=== PATIENT | female | born 1935 | race Caucasian/White ===

== ENCOUNTER 2017-06-28 23:30 | Inpatient (IN) | payer MEDICARE ==
[2017-06-29] MEDS ORDERED: Fentanyl 100 MCG/2 ML VIAL ONE ×2 (00:31→06:39)
[2017-06-29 00:43] LABS: Base Excess-Venous -19.7 mmol/L (-30.0-30.0); Bicarbonate (HCO3v) 8.6 mmol/L (1.0-85.0); CO2 Tension (PvCO2) 27.7 mmHg (41.0-51.0); Calcium, Ionized 1.01 mmol/L (1.12-1.32); Hemoglobin - Calc 15.2 g/dL (12.0-18.0); O2 Tension (PvO2) 43.9 mmHg (35.0-45.0); Potassium 4.1 mmol/L (3.4-4.7); T. Carbon Dioxide 9.4 mmol/L (1.0-85.0); pH (Venous) 7.099 (7.35-7.45); vO2 Saturation-calc 63.7 % (0.0-100.0)
[2017-06-29 01:02] LABS: Hemoglobin 12.7 g/dL (12.0-16.0); Mean Corpuscular HGB CONC 30.1 g/dL (32.0-36.0); Mean Corpuscular Hemoglobin 27.7 pg (27.0-31.0); Mean Corpuscular Volume 92.3 fl (81.0-99.0); Mean Platelet Volume 10.5 fL (7.4-10.4); Platelet Count 210 thou/uL (130-400); RBC Distribution Width 14.7 % (11.5-14.5); Red Blood Cell (RBC) Count 4.56 mill/uL (4.20-5.40)
[2017-06-29 01:15] LABS: Troponin I 0.037 ng/mL (< 0.028)
[2017-06-29 01:16] LABS: Band 19 % (5-11); Lymphocytes 6 % (21-51); MDiff Complete? YES; Metamyelocyte 4 % (0-0); Monocytes 21 % (0-10); Myelocyte 2 % (0-0); Neutrophil 48 % (42-75); PLT Morphology Comment Appears Adequate; Polychromasia SLIGHT = 2-3 cells (100X) (0-2/hpf); Reflex for Review?? YES
[2017-06-29 01:28] LABS: CKMB 102.3 ng/mL (0-6.6)
[2017-06-29 01:43] LABS: pH, Arterial 6.99 (7.35-7.45)
[2017-06-29 01:44] LABS: Actual Bicarbonate (HCO3a) 4.5 mEq/L (22-26); Base Excess (BEa) -25.2 mEq/L (0 (+/-) 2.5); CO2 Tension 18.9 mmHg (35.0-45.0); Hematocrit-ABG 35.2 % (36.0-47.0); Hemoglobin (Hb) 9.7 g/dL (12.0-16.0)
[2017-06-29 01:45] LABS: ALV-art Gradient 296.375 (0-20); Analyzer IN Cardio ER; Calcium, Ionized 1.1 mmol/L (1.12-1.30); Puncture Site LRA
[2017-06-29] MEDS ORDERED: Calcium Gluc 4.6 MEQ/10 ML (100 MG/ML) ONE (01:49)
[2017-06-29] MEDS ORDERED: Propofol 1,000 MG/100 ML VIAL IV ONE (01:51)
[2017-06-29 01:55] LABS: ALT (SGPT) 36 U/L (8-55); AST (SGOT) 111 U/L (5-34); Albumin 3.6 g/dL (3.4-4.8); Alkaline Phosphatase 104 U/L (40-150); BUN (Urea Nitrogen) 21 mg/dL (9.8-20.1); Bilirubin, Total 1.9 mg/dL (0.2-1.2); Calc. Creatinine Clearance 0 mL/min (70-130); Calcium 9.3 mg/dL (7.8-10.44); Chloride 97 mmol/L (98-107); Estimated GFR-MDRD 28; Glucose 338 mg/dL (83-110); Lipase Less than 4 U/L (8-78); Potassium 4.4 mmol/L (3.5-5.1); Protein, Total 6.6 g/dL (6.0-8.3); Sodium 134 mmol/L (136-145)
[2017-06-29 02:01] LABS: Carbon Dioxide Less than 8 mmol/L (23-31)
[2017-06-29] MEDS ORDERED: Sodium Bicarbonate 150 MEQ in Dextrose 5% in Water 1,000 ML IV SCH (02:15)
[2017-06-29] MEDS ORDERED: Acetaminophen 650 MG Suppository PR PRN (02:44)
[2017-06-29] MEDS ORDERED: Phenylephrine 10 MG/NS 250 ML 250 ML IVPB PRN (02:44)
[2017-06-29] MEDS ORDERED: CCU Electrolyte Replacement 1 EACH IVPB ONE (02:44)
[2017-06-29] MEDS ORDERED: Sodium Chloride 0.9% 1,000 ML IV SCH (02:45)
[2017-06-29] MEDS ORDERED: Potassium Chloride 20 MEQ TAB PO PRN (03:08)
[2017-06-29] MEDS ORDERED: Magnesium Oxide 400 MG TAB PO PRN ×2 (03:08)
[2017-06-29] MEDS ORDERED: Potassium Chloride 40 MEQ in Sodium Chloride 0.9% 250 ML 250 ML IVPB PRN (03:08)
[2017-06-29] MEDS ORDERED: Potassium Phosphate 15 MMOL in Sodium Chloride 0.9% 250 ML 250 ML IV PRN (03:08)
[2017-06-29] MEDS ORDERED: Potassium Phosphate 9 MMOL in Sodium Chloride 0.9% 100 ML IVPB PRN (03:08)
[2017-06-29] MEDS ORDERED: Potassium Phosphate 12 MMOL in Sodium Chloride 0.9% 250 ML 250 ML IV PRN (03:08)
[2017-06-29] MEDS ORDERED: Potassium Chloride 40 MEQ in Premix Bag 1 BAG IVPB PRN (03:08)
[2017-06-29] MEDS ORDERED: CCU ELECTROLYTE REPLACEMENT PROTOCOL FS PRN (03:08)
[2017-06-29] MEDS ORDERED: Magnesium 2 GM/NS 0.9% 100 ML 2 GM in Premix Bag 1 BAG IVPB PRN (03:08)
[2017-06-29 03:15] LABS: Magnesium 3.1 mg/dL (1.6-2.6); Uric Acid 9.5 mg/dL (2.6-6.0)
[2017-06-29 03:15] LABS: pH, Arterial 7.09 (7.35-7.45)
[2017-06-29 03:16] LABS: Actual Bicarbonate (HCO3a) 6.7 mEq/L (22-26); Base Excess (BEa) -21.1 mEq/L (0 (+/-) 2.5); CO2 Tension 22.3 mmHg (35.0-45.0)
[2017-06-29 03:17] LABS: Calcium, Ionized 1.1 mmol/L (1.12-1.30); Hematocrit-ABG 20.7 % (36.0-47.0); Hemoglobin (Hb) 6.5 g/dL (12.0-16.0)
[2017-06-29 03:18] LABS: ALV-art Gradient 131.125 (0-20); Analyzer IN Cardio ER; Puncture Site RRA
[2017-06-29 03:20] LABS: Phosphorus 14.2 mg/dL (2.3-4.7)
[2017-06-29] MEDS ORDERED: Pantoprazole 80 MG in Sodium Chloride 0.9% 100 ML IVP SCH (04:00)
[2017-06-29] MEDS ORDERED: Clindamycin/D5W 900 MG in Premix Bag 1 BAG IVPB SCH ×2 (04:15→12:00)
[2017-06-29] MEDS ORDERED: Piperacillin-Tazo-Dextrose,Iso 3.375 GM in Premix Bag 1 BAG IVPB SCH (04:30)
[2017-06-29 04:44] LABS: Bilirubin Small (Negative); Blood, Urine Moderate (Negative); Glucose, Urine (Dipstick) Negative (Negative); Leukocyte Large (Negative); Nitrite Negative (Negative); Protein, Urine (Dipstick) 30 mg/dL (Neg-Trace); Specific Gravity, Urine 1.021 (1.002-1.036); Urobilinogen 0.2 mg/dL (0.2-1.0); pH, Urine 5.5 (5.0-9.0)
[2017-06-29 04:46] LABS: Bacteria/HPF 4+ HPF (None Seen); RBC/HPF 0-3 HPF (0-3); Squamous Epithelial 0-3 HPF (0-3); Yeast-AUWi Flag 17.5 (0-25.0)
[2017-06-29 05:08] LABS: Clarity Cloudy (Clear)
[2017-06-29 05:09] LABS: Hyaline Casts/LPF 0-3 HYALINE CAST LPF (0-3 Hyaline)
[2017-06-29] MEDS ORDERED: Piperacillin/Tazobactam 3.375 GM in Sodium Chloride 0.9% 100 ML IVPB SCH ×2 (06:00→12:00)
[2017-06-29 06:34] LABS: Chloride 95 mmol/L (98-107); Potassium 4.6 mmol/L (3.5-5.1); Sodium 135 mmol/L (136-145)
[2017-06-29] MEDS ORDERED: Bupivacaine/Epinephrine 0.25% 30 ML VIAL ONE (06:35)
[2017-06-29 06:36] LABS: Anion Gap 25 mmol/L (10-20); Carbon Dioxide 20 mmol/L (23-31)
[2017-06-29 06:38] LABS: Calc. Creatinine Clearance 0 mL/min (70-130); Estimated GFR-MDRD 35
[2017-06-29 06:39] LABS: BUN (Urea Nitrogen) 17 mg/dL (9.8-20.1)
[2017-06-29] MEDS ORDERED: Ketamine 50 MG/ML VIAL ONE (06:39)
[2017-06-29 06:45] LABS: Calcium 4.9 mg/dL (7.8-10.44); Glucose 825 mg/dL (83-110)
[2017-06-29] MEDS ORDERED: Sodium Bicarb 50 MEQ/50 ML Abboject 8.4% SYRINGE ONE ×4 (06:56→17:40)
[2017-06-29 06:58] LABS: Hemoglobin 6.2 g/dL (12.0-16.0); Mean Corpuscular HGB CONC 31.2 g/dL (32.0-36.0); Mean Corpuscular Volume 96.1 fl (81.0-99.0); Mean Platelet Volume 8.5 fL (7.4-10.4); Platelet Count 10 thou/uL (130-400); RBC Distribution Width 13.8 % (11.5-14.5); Red Blood Cell (RBC) Count 2.07 mill/uL (4.20-5.40); White Blood Cell (WBC) Count 22.9 thou/uL (4.8-10.8)
[2017-06-29 07:00] LABS: Band 31 % (5-11); Lymphocytes 14 % (21-51); MDiff Complete? YES; Monocytes 5 % (0-10); Neutrophil 50 % (42-75); PLT Morphology Comment Appears Decreased
[2017-06-29] MEDS ORDERED: DOPamine 400 MG/D5W 250 ML 250 ML ONE (07:02)
--- NOTE | 2017-06-29 07:11 | HP ---
PRIMARY CARE PHYSICIAN: Richard Martinez M.D. CHIEF COMPLAINT: Left hip pain. HISTORY OF PRESENT ILLNESS: Ms. Sy is an 82-year-old lady who was seen at [facility] on 06/29/2017. She initially presented to the emergency room complaining of left hip pain. She is currently intubated and mechanically ventilated, unable to provide any history. History was obtained from her , emergency room physician and medical records reviewed. She has been complaining of left hip pain over the last 2 weeks. She came to the emergency room because she fell yesterday after she slipped to the ground. The pain worsened. In the emergency room, she was found to be tachypneic, tachycardic with perioral cyanosis. She became less responsive. She received bicarbonate drip. She was eventually intubated for airway protection. She also had a central line placed. She also had an OG tube placed, which is draining blood. She was then referred to hospitalist service for admission. REVIEW SYSTEMS: Could not be completed secondary to patient's intubated status. PAST MEDICAL HISTORY: Significant for left breast cancer, status post mastectomy, status post chemotherapy for four years prior to 2005, dyslipidemia , seizure disorder on Keppra. PAST SURGICAL HISTORY: Significant for left mastectomy. PSYCHIATRIC HISTORY: None. SOCIAL HISTORY: No history of tobacco use, alcohol use or recreational drug use. FAMILY HISTORY: Could not be obtained. CODE STATUS: patient's code status was discussed by the emergency room physician with patient's . Patient is FULL CODE. ALLERGIES: CODEINE and MERCURY. CURRENT MEDICATIONS: Unknown. PHYSICAL EXAMINATION: GENERAL: On examination, Ms. Sy is intubated and mechanically ventilated. VITAL SIGNS: Blood pressure is 99/53, pulse is 106. She is breathing at rate of 16 and saturating 94% on the ventilator. She is afebrile. EYES: Pupils are approximately 4 mm bilaterally, very sluggishly reactive to light. No scleral icterus. ENT: Endotracheal tube present. NECK: Trachea is midline. No thyromegaly. RESPIRATORY: Chest wall movements are symmetric bilaterally. LUNGS: Clear to auscultation bilaterally. CARDIOVASCULAR: S1 and S2 are heard, regular and tachycardic. Peripheral pulses palpable. ABDOMEN: soft, non tender, no guarding or rigidity, sluggish bowel sounds. NEUROLOGIC: Unable to complete neurologic examination secondary to patient's intubated status. There is no facial droop. Deep tendon reflexes 2+. Plantar reflexes are equivocal bilaterally. MUSCULOSKELETAL: No spontaneous extremity movements at this time. SKIN: She has crepitus extending from left midthigh to left axilla, also present on the left abdominal wall as well as left chest wall. She also has bruising over the left lower quadrant as well as back. PSYCHIATRIC: Unable to assess mood, affect or orientation to person, place, or time. IMAGING AND LABORATORY DATA: Ms. Sy's labs and investigations were reviewed. I reviewed her electrocardiogram, which shows sinus tachycardia, no ST changes to suggest an acute coronary syndrome. I also reviewed her chest x- ray, which does not show any pulmonary infiltrates. She does have subcutaneous emphysema on the left side. She also had CT scan of the chest, abdomen, and pelvis. The official report is pending, but she appears to have subcutaneous airs extending from left thigh to left axilla. Laboratory investigations show leukocytosis with 111,000 white cells, normal hemoglobin, normal platelet count , elevated band neutrophils of 19%, neutrophils 48%, elevated monocytes of 21%, elevated metamyelocytes 4%, and elevated myelocytes 2%. She also has hyponatremia with sodium 134, normal potassium, carbon dioxide less than 8, blood urea nitrogen 21, elevated creatinine 1.74, elevated total bilirubin of 1.9, elevated AST of 111, normal ALT, indeterminate troponin I of 0.037, lactic acid elevated at 16.9, elevated TSH of 5.6842, urinalysis positive for protein, blood, bilirubin, and leukocyte esterase. Arterial blood gases show pH of 7.09 , pCO2 22.3, and pO2 549. ASSESSMENT AND PLAN: Ms. Sy is an 82-year-old lady who was seen at [facility] on 06/29/2017. Her problem list includes; 1. Sepsis: She appears to be presenting in sepsis. Etiology is unclear. Given the subcutaneous emphysema, general surgery service has been consulted by emergency room physician. She will be treated with vancomycin, Zosyn, levofloxacin, and clindamycin for now. We will await blood cultures. 2. Acute respiratory failure: She will be admitted to the CCU for mechanical ventilation. Pulmonology Service will be consulted. 3. Hematologic abnormalities: Suspicious for hematologic malignancy. Hematology Service has been contacted by emergency room physician and will see the patient today. 4. Renal insufficiency: Patient is receiving intravenous fluids. We will recheck creatinine. 5. Elevated TSH: TSH elevation is mild. We will check free T3 and free T4. 6. Seizure disorder: Continue Keppra after doses clarified. 7. Metabolic acidosis: likely secondary to lactic acidosis from sepsis. Treat sepsis with antibiotics, fluids, recheck labs. 8. GI bleed: start PPI drip, await surgical input. Many thanks for allowing me to participate in your patient's care. Please feel free to contact me with any questions or concerns. I had a lengthy discussion with patient's . He is aware that prognosis is guarded. LEVEL OF RISK: High. LEVEL OF COMPLEXITY: High. MTDD
[2017-06-29] MEDS ORDERED: Albumin 5% 0 ML ONE (07:13)
[2017-06-29] MEDS ORDERED: Vasopressin 40 UNIT, Admixture Fee 1 EACH in Sodium Chloride 0.9% 100 ML IV SCH (07:15)
[2017-06-29] MEDS ORDERED: Atropine Sulfate 1 mg/10 ml Syringe ONE ×2 (07:22→15:43)
[2017-06-29] MEDS ORDERED: Atropine Sulfate 0.4 mg/1 ml Vial ONE ×2 (07:23→09:09)
--- NOTE | 2017-06-29 07:32 | CON ---
DATE OF CONSULTATION: 06/29/2017. CONSULTING PHYSICIAN: Dr. Rodriguez, ER physician. HISTORY OF PRESENT ILLNESS: Marce Sy is an 82-year-old female who presented to [facility] with a chief complaint of fall and left-sided hip pain. During her workup, the patient became incr easingly altered and hypotensive. She was intubated by the ER physician. Prior to her intubation, t he patient had also started complaining of abdominal pain for which a CT scan was ordered. The CT sc an demonstrated diffuse left-sided subcutaneous emphysema for which we were consulted. Upon our eval uation, the patient is intubated and sedated on pressors with family at bedside. Per patient's famil y, she developed an upper respiratory infection approximately one month ago for which she received Au gmentin, which seemed to improve her symptoms. Approximately one week prior today, she developed sym ptoms of an upper respiratory infection and 3 days ago developed left hip pain which has gradually be en worsening. Patient attempted to ambulate earlier today, but fell and was too weak to ambulate the reafter and that is when the family brought her to the emergency room. Of note, she had a fever of 1 02 earlier today as well. states that there is a large area of discoloration along her left side which was not there earlier today. ALLERGIES: CODEINE and MERCURY. HOME MEDICATIONS: None. 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 Last chemo was in 2009, seizures and osteoporosis. PAST SURGICAL HISTORY: Left breast mastectomy in 2005. SOCIAL HISTORY: The patient lives with at home. Family denies alcohol, tobacco or illicit d rug use. REVIEW OF SYSTEMS: Negative except as indicated in the HPI. PHYSICAL EXAMINATION: VITAL SIGNS: On evaluation, blood pressure 99/53, pulse 106, respirations 16, O2 sat 96% on ventilat or, temperature 93.9. Ventilator settings, SIMV rate of 30, tidal volume 350, PEEP 5, FiO2 100%, Lev ophed at 25 mcg per minute. GENERAL: Elderly appearing female, sedated and intubated. PULMONARY: Symmetric rise. CARDIOVASCULAR: Tachycardic, no obvious murmurs, rubs, or gallops. Gastrointestinal: Abdomen is soft and nondistended. MUSCULOSKELETAL: No gross bony abnormality. NEUROLOGIC: Sedated. SKIN: There is a large purpuric discoloration extending from the proximal medial thigh and posterior ly caudally into the axilla. The borders of which were outlined by Dr. Wheatley at the time of our exam ination. LABORATORY DATA: WBC 111, hemoglobin 12.7, hematocrit 42.1, platelet count 210, 48% neutrophils, 19% bandemia, 6% lymphocytes, 21% monocytes, metamyelocytes 4% and 2% myelocytes. Sodium 134, potassium 4.4, chloride 97, carbon dioxide less than 8, BUN 21, creatinine 1.74, and glucose 338. Total bilir ubin 1.9, AST 111, ALT 36, phosphorus 14.2, and magnesium 3.1. CK 3438. Lactic acid of 16.5. Urina lysis significant for proteinuria and hematuria. Leukocyte esterase positive, WBCs too numerous to c ount, 4+ bacteria. Most recent blood gas was pH of 7.09, pCO2 of 22.3, pO2 549, bicarbonate 6.7. RADIOLOGIC FINDINGS: Chest x-ray post-intubation was appropriate. Official read for CT pending. Of ficial read for CT pending. Official read for hip x-rays pending. There is obvious extensive subcut aneous emphysema. CT of the chest, abdomen, and pelvis is also pending. There is a large area of le ft-sided subcutaneous emphysema and air extending from the axilla down to the left thigh. ASSESSMENT: 1. Abdominal pain. 2. Acute metabolic encephalopathy. 3. Large area of left-sided subcutaneous emphysema, etiology unknown. 4. Significant leukocytosis with lactic acidosis. 5. Metabolic acidosis. 6. Acute respiratory failure secondary to above. 7. Possible urinary tract infection. PLAN: Concern for necrotizing fasciitis versus septic peritonitis. Dr. Wheatley to take patient to the OR emergently. PLAN: The patient is being admitted by the Medicine Team. Plans for operative intervention have bee n discussed with the family at bedside who are in agreement at this time and all questions have been answered.
[2017-06-29 07:37] LABS: Prothrombin Time Greater than 150.0 SEC (12.0-14.7)
[2017-06-29 07:47] LABS: Free T4 (Free Thyroxine) 0.73 ng/dL (0.70-1.48)
--- NOTE | 2017-06-29 08:14 | CT ---
PRELIMINARY REPORT/[facility]/EMERGENCY AFTER HOURS PROCEDURE: EXAM: CT Head Without Intravenous Contrast EXAM DATE/TIME: 06/29/2017 4:49 AM CLINICAL HISTORY: 82 years old, female; Signs and symptoms; Weakness, extremity; Bilateral TECHNIQUE: Axial computed tomography images of the head/brain without intravenous contrast. COMPARISON: CT Brain WO Con 2014-11-23 04:51 FINDINGS: Brain: No radiographic evidence of acute territorial infarct or intracranial bleed. Patchy hypodensit y of the cerebral white matter, nonspecific but likely secondary to small vessel ischemic disease. Ag erelated generalized volume loss Ventricles: Unremarkable for patient age. Bones/joints: No acute findings. No acute fracture. Soft tissues: No acute findings. Vasculature: There is vascular calcification in the internal carotid and vertebral arteries at the sk ull base. Sinuses: Unremarkable. Mastoid air cells: No significant mastoid effusion. IMPRESSION: 1. No radiographic evidence of acute territorial infarct or intracranial bleed. 2. Small vessel ischemic disease. Thank you for allowing us to participate in the care of your patient. Dictated and Authenticated by: Floyd Troy MD 06/29/2017 6:08 AM Central Time ([place] & [place]) FINAL REPORT HEAD CT NONCONTRAST: COMPARISON: 11/23/14. FINDINGS/IMPRESSION: I agree with the preliminary interpretation. No acute intracranial hemorrhage or mass effect. Moderate chronic microvascular ischemic disease. POS: [facility]
[2017-06-29 08:15] LABS: Lactic Acid 16.9 mmol/L (0.5-2.2)
--- NOTE | 2017-06-29 08:30 | RAD ---
LEFT HIP 2 VIEWS: INDICATION: Pain, fall. FINDINGS: There is prominent soft tissue emphysema which does obscure detail. No obvious, displaced left hip f racture visualized. Femoral head remains seated within the acetabulum. IMPRESSION: Extensive soft tissue emphysema which does limit assessment as it obscures portions of the osseous st ructures. No obvious displaced left hip fracture. POS: [facility]
--- NOTE | 2017-06-29 08:40 | RAD ---
FRONTAL VIEW CHEST: COMPARISON: 06/29/17, 0123 hours. CLINICAL HISTORY: Fall with injury. FINDINGS: There is left side soft tissue emphysema. The patient is intubated with endotracheal tube above the nnamdi and esophagogastric tube traversing to the expected level of the distal esophagus. No obvious pneumothorax, although there is limitation due to the overlying soft tissue emphysema of the left ch est. Cardiac silhouette is accentuated. There are extrinsic artifacts which limit detail. IMPRESSION: 1. Extensive soft tissue emphysema of the chest to the left of midline. 2. Esophagogastric tube is present, terminating at the expected region of the distal esophagus. Rec ommend advancement and followup imaging for confirmation. POS: [facility]
[2017-06-29] MEDS ORDERED: Heparin 5,000 UNITS/ML VIAL SC SCH (09:00)
[2017-06-29] MEDS ORDERED: Vancomycin HCl 1 GM in Premix Bag 1 BAG IVPB SCH (09:00)
--- NOTE | 2017-06-29 09:08 | RAD ---
FRONTAL VIEW CHEST: INDICATION: Fall, weakness. FINDINGS: There is soft tissue emphysema along the left chest and abdomen. Metallic clips are seen in the left axilla. There is no obvious consolidation or discrete pneumothorax. Cardiac silhouette is accentua kain by portable technique. IMPRESSION: Left-side soft tissue emphysema of chest and abdomen. POS: [facility]
[2017-06-29] MEDS ORDERED: Sodium Bicarb 50 MEQ/50 ML VIAL ONE (09:09)
[2017-06-29] MEDS ORDERED: Calcium Chloride 1 GM/10 ML Abboject SYRINGE ONE (09:09)
[2017-06-29] MEDS ORDERED: EPINEPHrine 1 MG/10 ML Abboject SYRINGE ONE ×2 (09:09→15:43)
--- NOTE | 2017-06-29 09:13 | CT ---
PRELIMINARY REPORT/[facility]/EMERGENCY AFTER HOURS PROCEDURE: EXAM: CT Chest Without Intravenous Contrast CLINICAL HISTORY: 82 years old, female; Signs and symptoms; Other: Weakness TECHNIQUE: Axial computed tomography images of the chest without intravenous contrast. Reformatted images were created and reviewed. COMPARISON: No relevant prior studies available. FINDINGS: Lungs: Small atelectasis versus infiltrates in the lower lobes Pleural space: No acute findings. No pneumothorax. No significant effusion. Heart: No significant pericardial effusion. Bones/joints: No acute findings. No acute fracture. No dislocation. Moderate T11 compression deformit y, likely chronic Soft tissues: No acute findings. Vasculature: No acute findings. No thoracic aortic aneurysm. Lymph nodes: No significant adenopathy. Upper abdomen: Please see abdomen and pelvis CT dictation Tubes, lines and devices: Endotracheal tube is 1 cm above the nnamdi. NG tube at the GE junction IMPRESSION: 1: Endotracheal tube is 1 cm above the nnamdi. Recommend withdrawing the endotracheal tube 1 cm 2: NG tube at the GE junction. Recommend advancing the NG tube 3: Small atelectasis versus infiltrates in the lower lobes 4: Please see abdomen and pelvis CT dictation EXAM: CT Abdomen and Pelvis Without Intravenous Contrast EXAM DATE/TIME: 06/29/2017 4:51 AM CLINICAL HISTORY: 82 years old, female; Signs and symptoms; Other: Weakness TECHNIQUE: Axial computed tomography images of the abdomen and pelvis without intravenous contrast. Reformatted images were created and reviewed. COMPARISON: No relevant prior studies available. FINDINGS: ABDOMEN: Liver: Pneumobilia versus portal venous air. Gallbladder and bile ducts: Gallstone Pancreas: No acute findings. Spleen: No acute findings. Adrenals: No acute findings. Kidneys and ureters: No ureter or obstructing renal stones. No hydronephrosis. Nonobstructing stone in the left renal pelvis. Small right extrarenal pelvis Stomach and bowel: Pneumatosis in the right colon. Possible pneumatosis in the descending colon. No bowel obstruction Appendix: No findings to suggest acute appendicitis. PELVIS: Bladder: No acute abnormality. Decompressed with Milian catheter Reproductive: Unremarkable as visualized. ABDOMEN and PELVIS: Intraperitoneal space: No acute findings. No free air. No significant fluid collection. Bones/joints: No acute fracture. No dislocation. Soft tissues: Extensive retroperitoneal and subcutaneous air, left greater than right. Air tracks wing ng the left pelvic sidewall, left thigh and gluteal muscles, left flank and chest subcutaneous tissue s. Air on the right occupies the iliacus region and right thigh muscles. Vasculature: No acute findings. No abdominal aortic aneurysm. Lymph nodes: No significant adenopathy. Other: Left femoral central line, difficult to evaluate its exact location given large amount of surr ounding retroperitoneal air IMPRESSION: 1: Pneumatosis in the right colon. Possible pneumatosis in the descending colon. Ischemic colitis is in the differential 2: Extensive retroperitoneal and subcutaneous air, left greater than right. Air tracks along the left pelvic sidewall, left thigh and gluteal muscles, left flank and chest subcutaneous tissues. Air on t he right occupies the iliacus region and right thigh muscles. Question origin of the retroperitoneal and subcutaneous air from the colon/pneumatosis, necrotizing fasciitis not excluded 3: Pneumobilia versus portal venous air. 4: Gallstone 5: Nonobstructing stone in the left renal pelvis. THIS REPORT CONTAINS FINDINGS THAT MAY BE CRITICAL TO PATIENT CARE. The findings were verbally commun icated via telephone conference with CRUZ JOHNSON at 6:30 AM [employer] APPRENTICE on 06/29/2017. The findings were ackn owledged and understood. Thank you for allowing us to participate in the care of your patient. Dictated and Authenticated by: Floyd Troy MD 06/29/2017 6:32 AM Central Time ([place] & [place]) FINAL REPORT CT CHEST AND ABDOMEN AND PELVIS WITHOUT CONTRAST: INDICATION: Weakness, fall. FINDINGS/IMPRESSION: I agree with the preliminary interpretation provided above. Extensive soft tissue emphysema along the left lateral body wall of the chest, abdomen, and pelvis an d within the retroperitoneum. There is associated pneumotosis notably at the proximal right hemicolo n with associated bowel perforation, surrounding inflammatory edema, and extraluminal air. Portal ve nous gas is present as a result. In addition to the above-described diffuse left-sided soft tissue e mphysema, there is a prominent area of right-sided soft tissue emphysema of the pelvic and right thig h musculature. The presence of portal venous gas suggests the possibility of associated ischemic bowel. This should be further assessed urgently with surgical consultation. Cholelithiasis. POS: [facility]
--- NOTE | 2017-06-29 15:27 | EKG ---
Test Reason : Blood Pressure : / mmHG Vent. Rate : 121 BPM Atrial Rate : 121 BPM P-R Int : 156 ms QRS Dur : 072 ms QT Int : 324 ms P-R-T Axes : 072 -35 049 degrees QTc Int : 460 ms Sinus tachycardia with Fusion complexes Left axis deviation Inferior infarct , age undetermined Anterior infarct , age undetermined Abnormal ECG Confirmed by CRUZ JOHNSON M.D. ([id number]), social media editor HENRY SHANKAR ([id number]) on 06/29/2017 3:26:26 PM Referred By: Confirmed By:CRUZ JOHNSON M.D.
[2017-06-29] MEDS ORDERED: Dextrose 50% Abboject 50 ML SYRINGE ONE (15:43)
--- NOTE | 2017-06-29 23:53 | OP ---
DATE OF OPERATION: 06/29/2017 PREOPERATIVE DIAGNOSES: 1. Acute septic shock. 2. Acute severe lactic acidosis secondary to acute septic shock. 3. Extensive left-sided subcutaneous emphysema. 4. Acute respiratory failure secondary to acute septic shock. POSTOPERATIVE DIAGNOSES: 1. Acute septic shock. 2. Acute severe lactic acidosis secondary to acute septic shock. 3. Extensive left-sided subcutaneous emphysema. 4. Acute respiratory failure secondary to acute septic shock. 5. Obstructive cecal mass. 6. Extensive ischemic bowel necrosis involving the right colon and multiple segments of small bowel. 7. Perioperative acute cardiac arrest. SURGERY PERFORMED: 1. Exploratory laparotomy. 2. Right hemicolectomy. 3. Segmental small bowel resection. 4. Wound VAC application. SURGEON: Michael Wheatley D.O. ANESTHESIA: General endotracheal. ESTIMATED BLOOD LOSS: 50 mL. COUNTS: Sponge and instrument count certified as correct x2. INDICATIONS FOR OPERATION: An 82-year-old woman presented to emergency department with malaise and 3 -day history of abdominal pain. The patient rapidly deteriorated in the emergency department and was intubated. CT scan of the abdomen and pelvis was obtained, which revealed extensive subcutaneous em physema involving the left hemithorax and hemiabdomen. The patient has worsening acute septic shock, was on norepinephrine at 30 mcg per minute, has received a large volume fluid resuscitation and bica rbonate infusion prior to my evaluation. I was asked to evaluate the patient exclude intraabdominal source of the septic shock. On examination, patient is obviously in extremis. She has a large bruis ing about the left hemithorax extending from the left axilla down to the level of the iliac crest, me dial borders to almost the umbilicus and the lateral and posterior borders would be the posterior ASI S. White blood cell count was reviewed at over 100,000. Decision was made to take the patient emerg ently to the operating room to exclude intraabdominal source. Findings were consistent with obstruct lawanda cecal mass with extensive bowel necrosis involving the right colon and multiple segments of small bowel. DESCRIPTION OF OPERATION: Informed consent obtained from the patient's after they were duly informed of the patient's significant risk. The patient was brought to the operating room and placed in supine position. Following general anesthesia, abdomen is sterilely prepped and draped in the us ual fashion. The skin is incised using #10 scalpel and carried the incision through subcutaneous tis sues maintain hemostasis using cautery. The fascia was incised along the line of incision. The lucy toneal cavity was sharply entered using scalpel. Incision was then extended superiorly and posterior ly. Bookwalter retractor was put in place to gain exposure. Immediately large amount of foul smelli ng fluid was evacuated from the peritoneal cavity. The small bowel was run from the ligament of Trei tz down to terminal ileum encountering multiple segments of necrotic small bowel. I resected long le ngth of small bowel to achieve this, I created a rent through the mesentery, proximal and distal to t he involved segment, dividing the bowel there with JARON stapler. Mesentery of the specimen was serial ly divided using LigaSure. The specimen was passed off the operative field following for transmissio n to pathology. I then inspected the large intestine from the cecum through the ascending, transvers e, descending, sigmoid colon and rectum. I found a large obstructing mass in the cecum with the prox imal small bowel which was necrotic. I then proceeded with right hemicolectomy to achieve this, I cr eate the rent through the terminal ileum approximately 4 cm from the ileocecal junction through this, JARON stapler was introduced and bowel was divided. The right colon was then mobilized along the whit e line of Toldt. I created a rent through the mesentery of the right colon past the hepatic flexure then JARON stapler was used to divide the bowel. Mesentery of the right colonic specimen was serially divided using LigaSure with good hemostasis. The specimen was also passed off the operative field fo r transmission to pathology. We irrigated the abdominal cavity copiously with saline. After the wou nd VAC dressing was used to cover the viscera and external wound VAC dressings was applied, connectin g this to vacuum assistive device with a 20 mmHg low intensity suction. At this juncture, the patien t went into cardiac arrest. CPR was initiated with brief return of spontaneous circulation. The pat ient went back again into asystole, additional CPR felt to return spontaneous circulation and the pat ient was pronounced at that time at 0734 hours. Family was notified.
--- NOTE | 2017-07-01 01:45 | DIS ---
DATE OF ADMISSION: 06/29/2017 Patient on 06/29/2017 PRIMARY CARE PHYSICIAN: Richard Martinez M.D. DISCHARGE DIAGNOSES: 1. Acute septic shock. 2. Acute severe lactic acidosis. 3. Left-sided subcutaneous emphysema. 4. Obstructive cecal mass. 5. 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 6. Perioperative cardiac arrest. 7. Metabolic acidosis secondary to lactic acidosis. PROCEDURES DURING THIS HOSPITALIZATION: Exploratory laparotomy, right hemicolectomy, segmental small bowel resection, wound VAC application, intubation, and mechanical ventilation, and central line surjit cement. HOSPITAL COURSE: Ms. Sy is an 82-year-old lady who was admitted to [facility] on 06/29/2017. Please refer to history and physical note from 06/29/2017 for further informat ion. She was seen by General Surgery service. CT scan of the chest/abdomen/pelvis showed extensive soft tissue emphysema along the left lateral body wall of the chest, abdomen, pelvis and within the r etroperitoneum. She also had pneumatosis of the proximal right hemicolon with associated bowel perfo ration, surrounding inflammatory edema and extraluminal air. After discussion between surgical servi ce and patient's family members, patient was taken to the operating room on an emergent basis. She u nderwent the procedures as described above. She went into cardiac arrest following the procedure. S he had brief return of spontaneous circulation following CPR, but went back into asystole again. Add itional CPR failed to return spontaneous circulation and patient was pronounced at 0734 hours on 06/29/2017. Many thanks for allowing me to participate in your patient's care. Please feel free to contact me wi th any questions or concerns.
--- NOTE | 2017-09-13 11:45 | EKG ---
Test Reason : Blood Pressure : / mmHG Vent. Rate : 120 BPM Atrial Rate : 120 BPM P-R Int : 168 ms QRS Dur : 070 ms QT Int : 326 ms P-R-T Axes : 078 -14 051 degrees QTc Int : 460 ms Sinus tachycardia with Fusion complexes Low voltage QRS Cannot rule out Inferior infarct , age undetermined Cannot rule out Anterior infarct , age undetermined Abnormal ECG Confirmed by ALEX Keith, CRUZ ([id number]), news video editor GEOFFREY HELMS ([id number]) on 09/13/2017 11:44:50 AM Referred By: Confirmed By:CRUZ JOHNSON M.D.
== END 2017-06-29 07:45 | disposition expired | DRG 853 ==
LOC: ERS 23:30 → ERHOLD 06-29 02:30
PROVIDERS: ADMIT Internal Medicine; ATTEND Internal Medicine
PROC: 0DTF0ZZ Resection of Right Large Intestine, Open Approach (ICD-10-PCS; principal; 2017-06-29)
PROC: 5A12012 Performance of Cardiac Output, Single, Manual (ICD-10-PCS; 2017-06-29)
PROC: 5A1935Z Respiratory Ventilation, Less than 24 Consecutive Hours (ICD-10-PCS; 2017-06-29)
PROC: 0DT80ZZ Resection of Small Intestine, Open Approach (ICD-10-PCS; 2017-06-29)
PROC: 0BH17EZ Insertion of Endotracheal Airway into Trachea, Via Natural or Artificial Opening (ICD-10-PCS; 2017-06-29)
PROC: 06HY33Z Insertion of Infusion Device into Lower Vein, Percutaneous Approach (ICD-10-PCS; 2017-06-29)
DX: A41.9 Sepsis, unspecified organism (principal); J96.00 Acute respiratory failure, unspecified whether with hypoxia or hypercapnia; I46.9 Cardiac arrest, cause unspecified; K55.021 Focal (segmental) acute infarction of small intestine; R65.21 Severe sepsis with septic shock; K56.699 Other intestinal obstruction unspecified as to partial versus complete obstruction; G93.41 Metabolic encephalopathy; J98.2 Interstitial emphysema; K55.049 Acute infarction of large intestine, extent unspecified; E87.2 Acidosis; G40.909 Epilepsy, unspecified, not intractable, without status epilepticus; E78.5 Hyperlipidemia, unspecified; Z85.3 Personal history of malignant neoplasm of breast; Z92.21 Personal history of antineoplastic chemotherapy; Z88.5 Allergy status to narcotic agent; Z90.12 Acquired absence of left breast and nipple
CPT/HCPCS: 31500; 36415; 36416; 36430; 36556; 70450; 71045; 71250; 74177; 80053; 81003; 81015; 82330; 82553; 82803; 82805; 83605; 83690; 83735; 84100; 84439; 84443; 84481; 84484; 84550; 85025; 85060; 85610; 86850; 86900; 86901; 87040; 88307; 93005; 96365; 96366; 96368; 96374; 96375; 96376; 99292; C9113; J0171; J0461; J1265; J1815; J1956; J2543; J2704; J3010; J3370; J7050; J7070; P9016; P9045